=== PATIENT | female | born 1995 | race Hispanic/Latino ===

== ENCOUNTER 2023-10-20 20:39 | Day surgery (SDC) | payer OTHER ==
[2023-10-20 21:09] VITALS: BMI 28.0
== END 2023-10-20 22:05 | disposition home or self-care (01) ==
LOC: CSHLD/OP 20:39
PROVIDERS: ATTEND Family Medicine
DX: O47.1 False labor at or after 37 completed weeks of gestation (principal); O46.93 Antepartum hemorrhage, unspecified, third trimester; Z79.899 Other long term (current) drug therapy; Z3A.38 38 weeks gestation of pregnancy
CPT/HCPCS: 99282

== ENCOUNTER 2023-10-26 20:05 | Inpatient (IN) | payer MEDICAID, OTHER ==
[2023-10-26 20:18] VITALS: BMI 28.3
[2023-10-26] MEDS ORDERED: Carboprost 250 MCG/ML AMP IM PRN (20:43)
[2023-10-26] MEDS ORDERED: Misoprostol 200 MCG TAB PR PRN (20:43)
[2023-10-26] MEDS ORDERED: Acetaminophen 500 MG TAB PO PRN (20:43)
[2023-10-26] MEDS ORDERED: Ondansetron PF 4 MG/2 ML Vial IVP PRN (20:43)
[2023-10-26] MEDS ORDERED: Promethazine HCl 25 MG/ML VIAL IM PRN (20:43)
[2023-10-26] MEDS ORDERED: hydrALAZINE 20 MG/ML VIAL SLOW IVP PRN (20:43)
[2023-10-26] MEDS ORDERED: Methylergonovine 0.2 MG/ML VIAL IM PRN (20:43)
[2023-10-26] MEDS ORDERED: Diphenoxylate HCl/Atropine Tablet PO PRN (20:43)
[2023-10-26] MEDS ORDERED: HYDROcodone/Acetaminophen 5/325 mg Tablet PO PRN (20:43)
[2023-10-26] MEDS ORDERED: fentaNYL 50 mcg/mL 1 mL Vial SLOW IVP PRN (20:43)
[2023-10-26] MEDS ORDERED: Tranexamic Acid 1,000 MG/10 ML VIAL IVP PRN (20:43)
[2023-10-26] MEDS ORDERED: Lidocaine 1% (PF) 30 ML VIAL SC PRN (20:43)
[2023-10-26] MEDS ORDERED: Oxytocin 30 units/NS 500 ML 500 ML IV SCH ×3 (21:00)
[2023-10-26] MEDS: Lactated Ringer's 1,000 ML IV SCH (21:00)
[2023-10-26 21:05] LABS: Hematocrit 34.3 % (34.9-44.5); Hemoglobin 10.1 g/dL (12.0-15.5); Mean Corpuscular HGB CONC 29.4 g/dL (32.0-36.0); Mean Corpuscular Hemoglobin 20.5 pg (27.0-33.0); Mean Corpuscular Volume 69.6 fl (81.6-98.3); Platelet Count 128 10x3/uL (150-450); RBC Distribution Width 19.2 % (11.5-14.5); Red Blood Cell (RBC) Count 4.93 10x6/uL (3.90-5.03); White Blood Cell (WBC) Count 8.2 10x3/uL (3.5-10.5)
[2023-10-26] MEDS: Misoprostol 100 MCG TAB PO SCH (21:12)
[2023-10-27 01:47] LABS: HBSAg Index 0.19 S/CO (0-0.99); Hep B Surf Ag - L&D Non-Reactive S/CO (NonReactive)
[2023-10-27 01:48] LABS: Syphilis Antibody Nonreactive (Nonreactive)
[2023-10-27] MEDS: Misoprostol 100 MCG TAB PO SCH ×2 (06:35→06:36)
[2023-10-27] MEDS: Lactated Ringer's 1,000 ML IV SCH ×4 (06:36→21:57)
[2023-10-27] MEDS ORDERED: fentaNYL/Ropivacaine Epidural 100 ML ONE (08:59)
[2023-10-27] MEDS ORDERED: Lactated Ringer's 500 ML IV PRN (10:27)
[2023-10-27] MEDS ORDERED: ePHEDrine Sulfate 50 MG/10 ML VIAL SLOW IVP PRN (10:27)
[2023-10-27] MEDS ORDERED: Acetaminophen 325 MG TAB PO PRN (10:27)
[2023-10-27] MEDS ORDERED: Ondansetron PF 4 MG/2 ML Vial IVP PRN (10:27)
[2023-10-27] MEDS ORDERED: diphenhydrAMINE 50 MG/ML VIAL IVP PRN (10:27)
[2023-10-27] MEDS ORDERED: Moisturizing Cream (Eucerin) 113 GM JAR TOP PRN (10:27)
[2023-10-27] MEDS ORDERED: Naloxone HCl 0.4 mg/ml Vial IVP PRN ×2 (10:27)
[2023-10-27] MEDS ORDERED: Promethazine HCl 25 MG/ML VIAL IM PRN (10:27)
[2023-10-27] MEDS ORDERED: Communication Order-Pharmacy FS SCH (10:30)
[2023-10-27] MEDS ORDERED: fentaNYL 2 mcg/Ropivacaine 0.2% Epidural 100 ML CADD EPIDURAL SCH (10:30)
[2023-10-27] MEDS ORDERED: Ampicillin 2 GM VIAL ONE (22:49)
[2023-10-27] MEDS: Ampicillin 2 GM in Sodium Chloride 0.9% 100 ML IVPB SCH (22:54)
[2023-10-27] MEDS ORDERED: ADMIXTURE FEE IVPB SCH (23:00)
[2023-10-27] MEDS ORDERED: SODIUM CHLORIDE IVPB SCH (23:00)
[2023-10-27] MEDS ORDERED: GENTAMICIN IVPB SCH (23:00)
[2023-10-27] MEDS ORDERED: Lidocaine 1% (PF) 30 ML VIAL ONE (23:33)
[2023-10-28] MEDS ORDERED: Ketorolac Tromethamine 30 MG (1 mL) VIAL IVP SCH (00:30)
[2023-10-28] MEDS ORDERED: Boostrix 0.5 ML (Tdap) VIAL (>/=7 yrs of age) IM ONE (00:54)
[2023-10-28] MEDS ORDERED: Milk Of Magnesia 30 ML UDCUP PO PRN (00:54)
[2023-10-28] MEDS ORDERED: HYDROcodone/Acetaminophen 5/325 mg Tablet PO PRN ×2 (00:54)
[2023-10-28] MEDS ORDERED: Promethazine HCl 25 MG/ML VIAL IM PRN (00:54)
[2023-10-28] MEDS ORDERED: diphenhydrAMINE 25 MG CAP PO PRN (00:54)
[2023-10-28] MEDS ORDERED: Benzocaine-Menthol 82.5 ML CAN TOP PRN (00:54)
[2023-10-28] MEDS ORDERED: Lanolin Ointment 7 GM TUBE TOP PRN (00:54)
[2023-10-28] MEDS ORDERED: Ondansetron PF 4 MG/2 ML Vial IVP PRN (00:54)
[2023-10-28] MEDS ORDERED: hydrALAZINE 20 MG/ML VIAL SLOW IVP PRN (00:54)
[2023-10-28] MEDS ORDERED: Oxytocin 30 units/NS 500 ML 500 ML IV SCH (00:54)
[2023-10-28] MEDS ORDERED: Bisacodyl 10 MG SUPP PR PRN (00:54)
[2023-10-28] MEDS: Ampicillin 2 GM in Sodium Chloride 0.9% 100 ML IVPB SCH (04:48)
[2023-10-28] MEDS: Docusate 100 MG CAP PO SCH ×2 (07:44→21:13)
[2023-10-28] MEDS: Ferrous Sulfate 325 MG TAB PO SCH (07:44)
[2023-10-28] MEDS: Ibuprofen 800 MG TAB PO SCH ×2 (07:44→16:32)
[2023-10-28] MEDS: Prenatal Vitamin 1 TAB PO SCH (07:45)
[2023-10-28] MEDS ORDERED: Bupivacaine 0.25% HCL 30 ML VIAL ONE (08:00)
[2023-10-29] MEDS: Ibuprofen 800 MG TAB PO SCH ×2 (00:17→08:04)
[2023-10-29] MEDS: Ferrous Sulfate 325 MG TAB PO SCH (08:00)
[2023-10-29] MEDS: Docusate 100 MG CAP PO SCH (08:04)
[2023-10-29] MEDS: Prenatal Vitamin 1 TAB PO SCH (08:04)
[2023-10-29 11:20] VITALS: BP 96/54; TEMP 98.3
== END 2023-10-29 15:30 | disposition home or self-care (01) | DRG 807 ==
LOC: CSHLD 20:05 → CSHPP 10-28 01:35
PROVIDERS: ADMIT Family Medicine; ATTEND Family Medicine
PROC: 10E0XZZ Delivery of Products of Conception, External Approach (ICD-10-PCS; principal; 2023-10-27)
PROC: 0KQM0ZZ Repair Perineum Muscle, Open Approach (ICD-10-PCS; 2023-10-27)
DX: O69.81X0 Labor and delivery complicated by cord around neck, without compression, not applicable or unspecified (principal); Z37.0 Single live birth; Z3A.39 39 weeks gestation of pregnancy; O70.1 Second degree perineal laceration during delivery
CPT/HCPCS: 36415; 51702; 85027; 86780; 86850; 86900; 86901; 87340; 88307; J0290; J0665; J1580; J1885; J2001; J2210; J2590; J3490; J7120